=== PATIENT | female | born 1965 ===

== ENCOUNTER 2019-03-17 11:46 | Inpatient (IN) ==
[2019-03-17] MEDS ORDERED: PROMETHAZINE 25 MG/1 ML VIAL IM PRN (14:41)
[2019-03-17] MEDS ORDERED: PNEUMOCOCCAL VACCINE (23 VALENT) 0.5 ML VIAL IM ONE (15:25)
[2019-03-17] MEDS ORDERED: INFLUENZA VIRUS VACCINE 0.5 ML SYRINGE IM ONE (15:26)
[2019-03-17 15:29] LABS: Basophils # 0.1 10*3/uL (0.0-0.2); Basophils % 0.6 % (0.0-0.8); Hematocrit 41.5 VOL% (35.7-47.0); Hemoglobin 13.6 GM/DL (12.0-16.0); Immature Granulocytes % 0.5 %; Immature Granulocytes Absolute 0.04 #; Mean Corpuscular HGB Conc 32.8 GM/DL (32-36); Mean Corpuscular Volume 92.6 FL (87-102); Mean Platelet Volume 9.8 FL (9.6-12.0); Monocytes % 7.4 % (1.7-12.7); Neutrophils % 79.5 % (38.7-73.9); Platelet Count 140 T/CUMM (130-400); Red Blood Count 4.48 MC/CUMM (3.8-5.5); White Blood Count 8.1 T/CUMM (4-12)
[2019-03-17 15:52] LABS: Calcium 8.1 MG/DL (8.5-10.1)
[2019-03-17] MEDS ORDERED: LORazepam 2 MG/1 ML VIAL ONE (16:06)
[2019-03-17] MEDS: LORazepam 2 MG/1 ML VIAL IV PRN (16:13)
[2019-03-17] MEDS: PHENYTOIN ER 100 MG CAPSULE PO SCH ×2 (16:32→22:00)
[2019-03-17] MEDS: ENOXAPARIN 40 MG/0.4 ML SYRINGE SUBCUT SCH (16:33)
[2019-03-17] MEDS: PHENobarbital 30 MG TABLET PO SCH ×2 (16:44→22:00)
[2019-03-17] MEDS: SODIUM CHLORIDE 0.9% 1,000 ML IV SCH (16:48)
[2019-03-17] MEDS: tiZANidine 4 MG TABLET PO PRN (19:14)
[2019-03-18] MEDS: SODIUM CHLORIDE 0.9% 1,000 ML IV SCH ×3 (00:25→08:29)
[2019-03-18] MEDS: LORazepam 2 MG/1 ML VIAL IV PRN (01:10)
[2019-03-18 05:49] LABS: Calcium 8.2 MG/DL (8.5-10.1); Osmolality,Calculated 271.7 MOS/KG (273-304)
[2019-03-18] MEDS: tiZANidine 4 MG TABLET PO PRN ×2 (06:05→15:25)
[2019-03-18] MEDS: PHENYTOIN ER 100 MG CAPSULE PO SCH ×3 (08:25→22:59)
[2019-03-18] MEDS: PHENobarbital 30 MG TABLET PO SCH ×3 (08:25→22:59)
[2019-03-18] MEDS ORDERED: LACTATED RINGERS 1,000 ML IV ONE (09:06)
[2019-03-18] MEDS: POTASSIUM CHLORIDE 20 MEQ TABLET PO SCH ×4 (09:22→23:01)
[2019-03-18] MEDS: POTASSIUM CHLORIDE INJ 10 MEQ in DEXTROSE 5% LACTATED RINGERS 1,000 ML IV SCH ×2 (10:18→20:00)
[2019-03-18] MEDS: ENOXAPARIN 40 MG/0.4 ML SYRINGE SUBCUT SCH (15:16)
[2019-03-18 16:46] LABS: Phenytoin (Dilantin) 15.9 UG/ML (10-20)
[2019-03-19] MEDS: tiZANidine 4 MG TABLET PO PRN ×2 (03:58→18:42)
[2019-03-19] MEDS: LORazepam 2 MG/1 ML VIAL IV PRN (03:58)
[2019-03-19 04:57] LABS: Basophils % 0.5 % (0.0-0.8); Eosinophils # 0.1 10*3/uL (0.0-0.87); Eosinophils % 1.3 % (0.00-10.9); Hematocrit 37.2 VOL% (35.7-47.0); Hemoglobin 11.9 GM/DL (12.0-16.0); Immature Granulocytes % 0.3 %; Immature Granulocytes Absolute 0.02 #; Lymphocytes # 1.9 10*3/uL (1.4-4.0); Lymphocytes % 29.3 % (21.3-54.2); Mean Corpuscular Volume 93.9 FL (87-102); Mean Platelet Volume 10.9 FL (9.6-12.0); Monocytes % 10.9 % (1.7-12.7); Neutrophils % 57.7 % (38.7-73.9); Platelet Count 132 T/CUMM (130-400); Red Blood Count 3.96 MC/CUMM (3.8-5.5); Red Cell Distribution Width 13.9 % (9.3-17.3); White Blood Count 6.3 T/CUMM (4-12)
[2019-03-19 05:13] LABS: Calcium 8.6 MG/DL (8.5-10.1)
[2019-03-19] MEDS: POTASSIUM CHLORIDE INJ 10 MEQ in DEXTROSE 5% LACTATED RINGERS 1,000 ML IV SCH (06:00)
[2019-03-19] MEDS: PHENYTOIN ER 100 MG CAPSULE PO SCH ×3 (08:33→21:01)
[2019-03-19] MEDS: PHENobarbital 30 MG TABLET PO SCH ×3 (08:33→21:01)
[2019-03-19] MEDS ORDERED: MAGNESIUM SULF RIDER 4 GM in PREMIX 1 EACH IV ONE (08:40)
[2019-03-19] MEDS: ENOXAPARIN 40 MG/0.4 ML SYRINGE SUBCUT SCH (15:54)
[2019-03-19] MEDS ORDERED: LORazepam 2 MG/1 ML VIAL IV PRN (23:21)
[2019-03-20] MEDS: tiZANidine 4 MG TABLET PO PRN (03:56)
[2019-03-20 04:59] LABS: Basophils % 0.5 % (0.0-0.8); Eosinophils # 0.2 10*3/uL (0.0-0.87); Eosinophils % 2.9 % (0.00-10.9); Hematocrit 34.9 VOL% (35.7-47.0); Hemoglobin 11.4 GM/DL (12.0-16.0); Immature Granulocytes % 0.3 %; Immature Granulocytes Absolute 0.02 #; Lymphocytes # 1.5 10*3/uL (1.4-4.0); Lymphocytes % 24.5 % (21.3-54.2); Mean Corpuscular HGB Conc 32.7 GM/DL (32-36); Mean Corpuscular Volume 92.1 FL (87-102); Mean Platelet Volume 10.7 FL (9.6-12.0); Monocytes % 8.4 % (1.7-12.7); Neutrophils % 63.4 % (38.7-73.9); Platelet Count 126 T/CUMM (130-400); Red Blood Count 3.79 MC/CUMM (3.8-5.5); Red Cell Distribution Width 13.5 % (9.3-17.3); White Blood Count 6.2 T/CUMM (4-12)
[2019-03-20 05:35] LABS: Osmolality,Calculated 284.7 MOS/KG (273-304)
[2019-03-20] MEDS: PHENobarbital 30 MG TABLET PO SCH ×2 (09:41→15:35)
[2019-03-20] MEDS: PHENYTOIN ER 100 MG CAPSULE PO SCH ×2 (09:42→15:35)
[2019-03-20] MEDS ORDERED: POTASSIUM CHLORIDE 20 MEQ TABLET PO ONE (10:23)
[2019-03-20 13:18] VITALS: BP 126/64
[2019-03-20] MEDS ORDERED: MAGNESIUM OXIDE 400 MG TABLET PO SCH (15:00)
[2019-03-20] MEDS: ENOXAPARIN 40 MG/0.4 ML SYRINGE SUBCUT SCH (15:36)
== END 2019-03-20 16:59 | disposition home health service (06) | DRG 101 ==
LOC: N.CC 13:01 → SUATTDRO 13:01 → INTOOBSV 13:01 → SUATTDRO 14:40 → N.5E 03-19 15:13
PROVIDERS: ADMIT Internal Medicine; ATTEND Internal Medicine